=== PATIENT | female | born 1930 | race Hispanic/Latino ===

== ENCOUNTER 2019-02-12 06:37 | Observation (INO) | payer MEDICARE, OTHER ==
[2019-02-12 07:39] LABS: BASO % 0.3 % (0.0-2.0); EOS # 0.1 K/uL (0.0-0.7); EOS % 0.7 % (0.0-4.0); HEMOGLOBIN 10.2 g/dL (11.0-16.0); LYMPH # 1.8 K/uL (1.0-4.3); LYMPH % 14.5 % (20.0-40.0); MEAN CELL VOLUME 86.6 fL (81.0-99.0); MEAN CORPUSCULAR HEMOGLOBIN 28.9 pg (27.0-31.0); MEAN CORPUSCULAR HGB CONC 33.3 g/dL (33.0-37.0); MEAN PLATELET VOLUME 8.8 fL (7.2-11.7); MONO # 0.8 K/uL (0.0-0.8); MONO % 6.5 % (0.0-10.0); NEUT # 9.5 K/uL (1.8-7.0); RBC 3.53 Mil/uL (3.80-5.20)
[2019-02-12 07:42] LABS: WHITE BLOOD COUNT 12.1 K/uL (4.8-10.8)
[2019-02-12 07:49] LABS: PROTHROMBIN TIME 11.2 SECONDS (9.7-12.2)
[2019-02-12 08:11] LABS: CK-MB 1.04 ng/mL (0.0-3.38); TROPONIN I 0.013 ng/mL (0.00-0.120)
--- NOTE | 2019-02-12 08:28 | C.PDOC ---
History Of Present Illness 88 y/o female w/PMhx of Alzheimer's dementia brought to ER by EMS from [facility] for evaluation of vomiting. As per EMS and NH records, patient had 2 episodes of coffee ground emesis today. HPI is limited due to joi estuardomayte's clinical condition. Time Seen by Provider: 02/12/19 07:03 Chief Complaint (Nursing): GI Problem History Per: EMS, Other (NH records) History/Exam Limitations: no limitations Onset/Duration Of Symptoms: Days Current Symptoms Are (Timing): Still Present Severity: Moderate Past Medical History Reviewed: Historical Data, Nursing Documentation, Vital Signs Vital Signs: Last Vital Signs Temp 98.4 F 02/12/19 06:46 Pulse 70 02/12/19 06:46 Resp 22 02/12/19 06:46 BP 145/72 02/12/19 06:46 Pulse Ox 98 02/12/19 06:46 Primary Care Provider: Swati Herrera - Medical History PMH: Alzheimer's Disease, Dementia, HTN Surgical History: No Surg Hx Family History: States: No Known Family Hx - Social History Hx Alcohol Use: No Hx Substance Use: No - Immunization History Hx Tetanus Toxoid Vaccination: No Hx Influenza Vaccination: No Hx Pneumococcal Vaccination: Yes Review Of Systems Review Of Systems: ROS cannot be obtained secondary to pt's inabilty to answer questions. Physical Exam - Physical Exam Appears: No Acute Distress, Chronically Ill, Other (awake, alert) Skin: Normal Color, Warm, Dry Head: Normacephalic Eye(s): bilateral: Normal Inspection Oral Mucosa: Moist Neck: Supple Cardiovascular: Rhythm Regular Respiratory: Normal Breath Sounds, No Rales, No Rhonchi, No Wheezing Gastrointestinal/Abdominal: Normal Exam, Bowel Sounds, Soft, No Tenderness, No Guarding, No Rebound Rectal: Rectal Tone (normal rectal tone), Hemorrhoids (external non-bleeding hemorrhoids, non-thrombosed, no gross blood), No Tenderness, Other (brown stool) Neurological/Psych: Other (awake, alert, confused, able to follow commands) ED Course And Treatment - Laboratory Results Result Diagrams: 02/13/19 11:24 02/13/19 11:24 Lab Results: PT 11.2 SECONDS (9.7-12.2) 02/12/19 07:29 INR 1.0 02/12/19 07:29 APTT 23.0 SECONDS (21-34) 02/12/19 07:29 Troponin I 0.0130 ng/mL (0.00-0.120) 02/12/19 07:29 ECG: Interpreted By Me, Viewed By Me (NSR 67 BPM, normal axis, no acute ST/T wave changes) ECG Interpretation: No Acute Changes O2 Sat by Pulse Oximetry: 98 (RA) Pulse Ox Interpretation: Normal - Other Rad CXR X-Ray: Viewed By Me, Read By Radiologist Interpretation: HISTORY: cough. COMPARISON: Chest x-ray performed 10/26/16. TECHNIQUE: Chest, one view. FINDINGS: LUNGS: Probable scarring/atelectasis at the right lung apex. Small lung nodule re-identified at the left mid lung, likely calcified granuloma. Please note that chest x-ray has limited sensitiv ity for the detection of pulmonary masses. PLEURA: No significant pleural effusion identified. No definite pneumothorax . CARDIOVASCULAR: Prominence of the mediastinum may be exaggerated by aortic ectasia and patient obliquity. Heart size appears borderline enlarged. Atherosclerotic calcifications of the aorta. OSSEOUS STRUCTURES: Osseous demineralization. Degenerative changes of the spine and shoulders. Scoliosis. Acromioclavicular arthropathy. VISUALIZED UPPER ABDOMEN: Unremarkable. OTHER FINDINGS: None. IMPRESSION: Prominence of the mediastinum may be exaggerated by aortic ectasia and patient obliquity. Heart size appears borderline enlarged. Atherosclerotic calcifications of the aorta. Small lung nodule re-identified at the left mid lung, likely calcified granuloma. Probable scarring/atelectasis at the right lung apex. Progress Note: Blood work, UA, SFOB, CXR ordered and reviewed. Patient given IV NS bolus, IV protonix. - Physician Consult Information Physician Contacted: Swati Herrera Outcome Of Conversation: Discussed patient with PMD, would like obs for coffee ground emesis, elevated Bun/Cr, anemia. Patient's son Russell at bedside and in agreement. Disposition - Disposition Disposition: HOSPITALIZED Disposition Time: 11:04 Condition: STABLE - Clinical Impression Clinical Impression: Coffee ground emesis, Elevated serum creatinine, Elevated BUN, Anemia - Scribe Statement The provider has reviewed the documentation as recorded by the Scribe All medical record entries made by the Scribe were at my direction and personally dictated by me. I have reviewed the chart and agree that the record accurately reflects my personal performance of the history, physical exam, medical decision making, and the department course for this patient. I have also personally directed, reviewed, and agree with the discharge instructions and disposition. Provider Attestation: All medical record entries made by the Scribe were at my direction and personally dictated by me. I have reviewed the chart and agree that the record accurately reflects my personal performance of the history, physical exam, medical decision making, and the department course for this patient. I have also personally directed, reviewed, and agree with the discharge instructions and disposition. Decision To Admit - Pt Status Changed To: Hospital Disposition Of: Observation - . Bed Request Type: Regular Admitting Physician: Swati Herrera Patient Diagnosis: Coffee ground emesis, Elevated serum creatinine, Elevated BUN, Anemia
[2019-02-12 08:41] LABS: ALB/GLOB RATIO 1.5 (1.0-2.1); ALBUMIN 3.6 g/dL (3.5-5.0); CALCIUM 9.4 mg/dl (8.6-10.4)
[2019-02-12] MEDS ORDERED: Sodium Chloride 0.9% 500 ML IV ONE ×2 (08:47→09:23)
--- NOTE | 2019-02-12 10:26 | RAD ---
HISTORY: cough COMPARISON: Chest x-ray performed 10/26/16 TECHNIQUE: Chest, one view. FINDINGS: LUNGS: Probable scarring/atelectasis at the right lung apex. Small lung nodule re-identified at the left mid lung, likely calcified granuloma. Please note that chest x-ray has limited sensitivity for the detection of pulmonary masses. PLEURA: No significant pleural effusion identified. No definite pneumothorax . CARDIOVASCULAR: Prominence of the mediastinum may be exaggerated by aortic ectasia and patient obliquity. Heart size appears borderline enlarged. Atherosclerotic calcifications of the aorta. OSSEOUS STRUCTURES: Osseous demineralization. Degenerative changes of the spine and shoulders. Scoliosis. Acromioclavicular arthropathy. VISUALIZED UPPER ABDOMEN: Unremarkable. OTHER FINDINGS: None. IMPRESSION: Prominence of the mediastinum may be exaggerated by aortic ectasia and patient obliquity. Heart size appears borderline enlarged. Atherosclerotic calcifications of the aorta. Small lung nodule re-identified at the left mid lung, likely calcified granuloma. Probable scarring/atelectasis at the right lung apex.
[2019-02-12 10:40] LABS: URINE BILIRUBIN NEGATIVE (NEGATIVE); URINE BLOOD NEGATIVE (NEGATIVE); URINE CLARITY Clear (Clear); URINE COLOR Yellow (YELLOW); URINE GLUCOSE (UA) NORMAL (Normal); URINE LEUKOCYTE ESTERASE NEG Leu/uL (Negative); URINE PROTEIN NEGATIVE (NEGATIVE)
--- NOTE | 2019-02-12 12:25 | CP.PCM.HP ---
History of Present Illness - History of Present Illness History of Present Illness: 88 y/o female,w/PMhx of Alzheimer's and dementia, brought to ER by EMS from [facility] for evaluation of vomiting. As per EMS and [place] records, patient had 2 episodes of coffee ground emesis BUN ELEVATED H/H STABLE STOOL GUAIC NEG Present on Admission - Present on Admission Any Indicators Present on Admission: No Review of Systems - Review of Systems All systems: reviewed and no additional remarkable complaints except (DEMENTIA) Past Patient History - Infectious Disease Hx of Infectious Diseases: None - Past Medical History & Family History Past Medical History?: Yes - Past Social History Smoking Status: Never Smoked - CARDIAC Hx Hypertension: Yes - PULMONARY Hx Respiratory Disorders: No - NEUROLOGICAL Hx Alzheimer's Disease: Yes Hx Dementia: Yes - HEENT Hx HEENT Problems: No - RENAL Hx Chronic Kidney Disease: No - ENDOCRINE/METABOLIC Hx Endocrine Disorders: No - HEMATOLOGICAL/ONCOLOGICAL Hx Blood Disorders: No Hx Blood Transfusions: No - INTEGUMENTARY Hx Dermatological Problems: No - MUSCULOSKELETAL/RHEUMATOLOGICAL Hx Falls: No - GASTROINTESTINAL Hx Gastrointestinal Disorders: No - GENITOURINARY/GYNECOLOGICAL Hx Genitourinary Disorders: No - PSYCHIATRIC Hx Substance Use: No - SURGICAL HISTORY Hx Surgeries: No - ANESTHESIA Hx Anesthesia: No Hx Anesthesia Reactions: No Hx Malignant Hyperthermia: No Meds Allergies/Adverse Reactions: Allergies Allergy/AdvReac Type Severity Reaction Status Date / Time red sauce Allergy Intermediate RASH Uncoded 02/12/19 07:00 Physical Exam - Constitutional Appears: Well - Head Exam Head Exam: ATRAUMATIC, NORMAL INSPECTION, NORMOCEPHALIC - Eye Exam Eye Exam: EOMI, Normal appearance, PERRL - ENT Exam ENT Exam: Mucous Membranes Moist, Normal Exam - Neck Exam Neck exam: Positive for: Normal Inspection - Respiratory Exam Respiratory Exam: Clear to Auscultation Bilateral, NORMAL BREATHING PATTERN - Cardiovascular Exam Cardiovascular Exam: REGULAR RHYTHM - GI/Abdominal Exam GI & Abdominal Exam: Normal Bowel Sounds, Soft. absent: Tenderness - Extremities Exam Extremities exam: Positive for: normal inspection - Neurological Exam Neurological exam: Altered, CN II-XII Intact - Psychiatric Exam Psychiatric exam: Flat Affect Results - Vital Signs Recent Vital Signs: Last Vital Signs Temp 98.4 F 02/12/19 06:46 Pulse 62 02/12/19 10:36 Resp 19 02/12/19 10:36 BP 148/61 05/01/19 10:36 Pulse Ox 98 02/12/19 11:52 - Labs Result Diagrams: 02/12/19 07:29 02/12/19 07:29 Labs: Laboratory Results - last 24 hr 02/12/19 02/12/19 02/12/19 07:29 07:29 07:29 WBC 12.1 H D RBC 3.53 L Hgb 10.2 L Hct 30.5 L MCV 86.6 MCH 28.9 MCHC 33.3 RDW 15.0 H Plt Count 246 MPV 8.8 Neut % (Auto) 78.0 H Lymph % (Auto) 14.5 L [place] % (Auto) 6.5 Eos % (Auto) 0.7 Baso % (Auto) 0.3 Neut # (Auto) 9.5 H Lymph # (Auto) 1.8 [place] # (Auto) 0.8 Eos # (Auto) 0.1 Baso # (Auto) 0.0 PT 11.2 INR 1.0 APTT 23.0 Sodium 142 Potassium 4.2 Chloride 111 H Carbon Dioxide 20 L Anion Gap 15 BUN 46 H Creatinine 1.6 H Est GFR ( Amer) 37 Est GFR (Non-Af Amer) 30 Random Glucose 96 Calcium 9.4 Total Bilirubin 0.6 AST 22 ALT 14 Alkaline Phosphatase 51 Total Creatine Kinase 96 CK-MB (Mass) 1.04 Troponin I 0.0130 Total Protein 6.1 L Albumin 3.6 Globulin 2.5 Albumin/Globulin Ratio 1.5 Lipase 167 Urine Color Urine Clarity Urine pH Ur Specific [place] Urine Protein Urine Glucose (UA) Urine Ketones Urine Blood Urine Nitrate Urine Bilirubin Urine Urobilinogen Ur Leukocyte Esterase Urine WBC (Auto) Urine RBC (Auto) Hyaline Casts Stool Occult Blood Blood Type Antibody Screen 02/12/19 02/12/19 02/12/19 07:29 07:38 10:29 WBC RBC Hgb Hct MCV MCH MCHC RDW Plt Count MPV Neut % (Auto) Lymph % (Auto) [place] % (Auto) Eos % (Auto) Baso % (Auto) Neut # (Auto) Lymph # (Auto) [place] # (Auto) Eos # (Auto) Baso # (Auto) PT INR APTT Sodium Potassium Chloride Carbon Dioxide Anion Gap BUN Creatinine Est GFR ( Amer) Est GFR (Non-Af Amer) Random Glucose Calcium Total Bilirubin AST ALT Alkaline Phosphatase Total Creatine Kinase CK-MB (Mass) Troponin I Total Protein Albumin Globulin Albumin/Globulin Ratio Lipase Urine Color Yellow Urine Clarity Clear Urine pH 5.0 Ur Specific [place] 1.011 Urine Protein Negative Urine Glucose (UA) Normal Urine Ketones Negative Urine Blood Negative Urine Nitrate Negative Urine Bilirubin Negative Urine Urobilinogen 2.0 H Ur Leukocyte Esterase Neg Urine WBC (Auto) < 1 Urine RBC (Auto) 1 Hyaline Casts 3-5 H Stool Occult Blood Negative Blood Type O POSITIVE Antibody Screen Negative Assessment & Plan (1) GI bleed Status: Acute Comment: GI EVAL (2) Acute gastritis Status: Acute
[2019-02-12 13:44] VITALS: RESP 20
--- NOTE | 2019-02-12 15:17 | CP.PCM.CON ---
<Amn Pascuala - Last Filed: 02/12/19 15:24> History of Present Illness - History of Present Illness History of Present Illness: GI Fellow PGY5 Consult This is a 88yF with pmhx of Alzheimer dementia brought to ER from [facility] for evaluation of vomiting. As per EMS and [place] records, patient had 2 episodes of coffee ground emesis. No more episodes in ER. Pt is unable to give further information due to dementia. On record review not on OAC or anti platelets. Unknown hx of EGD or Colonoscopy. Pt's Hgb 10.1 from 11.1 two years ago. Pt hemodynamically stable. ROS: A 12pt ROS was unable to be obtained due to dementia Pmhx: As stated above PsHx: unable to be obtained FHx: unable to be obtained SH: unable to be obtained Past Patient History - Infectious Disease Hx of Infectious Diseases: None - Past Medical History & Family History Past Medical History?: Yes - Past Social History Smoking Status: Never Smoked - CARDIAC Hx Hypertension: Yes - PULMONARY Hx Respiratory Disorders: No - NEUROLOGICAL Hx Alzheimer's Disease: Yes Hx Dementia: Yes - HEENT Hx HEENT Problems: No - RENAL Hx Chronic Kidney Disease: No - ENDOCRINE/METABOLIC Hx Endocrine Disorders: No - HEMATOLOGICAL/ONCOLOGICAL Hx Blood Disorders: No Hx Blood Transfusions: No - INTEGUMENTARY Hx Dermatological Problems: No - MUSCULOSKELETAL/RHEUMATOLOGICAL Hx Falls: No - GASTROINTESTINAL Hx Gastrointestinal Disorders: No - GENITOURINARY/GYNECOLOGICAL Hx Genitourinary Disorders: No - PSYCHIATRIC Hx Substance Use: No - SURGICAL HISTORY Hx Surgeries: No - ANESTHESIA Hx Anesthesia: No Hx Anesthesia Reactions: No Hx Malignant Hyperthermia: No Meds Allergies/Adverse Reactions: Allergies Allergy/AdvReac Type Severity Reaction Status Date / Time red sauce Allergy Intermediate RASH Uncoded 02/12/19 07:00 - Medications Medications: Current Medications Pantoprazole Sodium (Protonix Inj) 40 mg IVP Q12H ANNABELLA Last Admin: 02/12/19 13:55 Dose: 40 mg Physical Exam - Constitutional Appears: Non-toxic, No Acute Distress, Confused, Cachectic - Head Exam Head Exam: ATRAUMATIC, NORMAL INSPECTION, NORMOCEPHALIC - Eye Exam Eye Exam: EOMI, Normal appearance, PERRL - ENT Exam ENT Exam: Mucous Membranes Dry - Neck Exam Neck exam: Positive for: Normal Inspection - Respiratory Exam Respiratory Exam: Clear to Auscultation Bilateral, NORMAL BREATHING PATTERN - Cardiovascular Exam Cardiovascular Exam: REGULAR RHYTHM, RRR, +S1, +S2 - GI/Abdominal Exam GI & Abdominal Exam: Normal Bowel Sounds, Soft. absent: Distended, Firm, Guarding, Organomegaly, Tenderness - Rectal Exam Rectal Exam: Deferred - Extremities Exam Extremities exam: Positive for: full ROM, normal inspection - Neurological Exam Neurological exam: Alert - Psychiatric Exam Psychiatric exam: Agitated - Skin Skin Exam: Dry, Intact, Normal Color, Warm Results - Vital Signs Recent Vital Signs: Last Vital Signs Temp 98.0 F 02/12/19 13:34 Pulse 109 H 02/12/19 13:34 Resp 20 02/12/19 13:34 BP 143/51 L 02/12/19 13:34 Pulse Ox 98 02/12/19 13:34 - Labs Result Diagrams: 02/12/19 07:29 02/12/19 07:29 Labs: Laboratory Results - last 24 hr 02/12/19 02/12/19 02/12/19 07:29 07:29 07:29 WBC 12.1 H D RBC 3.53 L Hgb 10.2 L Hct 30.5 L MCV 86.6 MCH 28.9 MCHC 33.3 RDW 15.0 H Plt Count 246 MPV 8.8 Neut % (Auto) 78.0 H Lymph % (Auto) 14.5 L [place] % (Auto) 6.5 Eos % (Auto) 0.7 Baso % (Auto) 0.3 Neut # (Auto) 9.5 H Lymph # (Auto) 1.8 [place] # (Auto) 0.8 Eos # (Auto) 0.1 Baso # (Auto) 0.0 PT 11.2 INR 1.0 APTT 23.0 Sodium 142 Potassium 4.2 Chloride 111 H Carbon Dioxide 20 L Anion Gap 15 BUN 46 H Creatinine 1.6 H Est GFR ( Amer) 37 Est GFR (Non-Af Amer) 30 Random Glucose 96 Calcium 9.4 Total Bilirubin 0.6 AST 22 ALT 14 Alkaline Phosphatase 51 Total Creatine Kinase 96 CK-MB (Mass) 1.04 Troponin I 0.0130 Total Protein 6.1 L Albumin 3.6 Globulin 2.5 Albumin/Globulin Ratio 1.5 Lipase 167 Urine Color Urine Clarity Urine pH Ur Specific [place] Urine Protein Urine Glucose (UA) Urine Ketones Urine Blood Urine Nitrate Urine Bilirubin Urine Urobilinogen Ur Leukocyte Esterase Urine WBC (Auto) Urine RBC (Auto) Hyaline Casts Stool Occult Blood Blood Type Antibody Screen 02/12/19 02/12/19 02/12/19 07:29 07:38 10:29 WBC RBC Hgb Hct MCV MCH MCHC RDW Plt Count MPV Neut % (Auto) Lymph % (Auto) [place] % (Auto) Eos % (Auto) Baso % (Auto) Neut # (Auto) Lymph # (Auto) [place] # (Auto) Eos # (Auto) Baso # (Auto) PT INR APTT Sodium Potassium Chloride Carbon Dioxide Anion Gap BUN Creatinine Est GFR ( Amer) Est GFR (Non-Af Amer) Random Glucose Calcium Total Bilirubin AST ALT Alkaline Phosphatase Total Creatine Kinase CK-MB (Mass) Troponin I Total Protein Albumin Globulin Albumin/Globulin Ratio Lipase Urine Color Yellow Urine Clarity Clear Urine pH 5.0 Ur Specific [place] 1.011 Urine Protein Negative Urine Glucose (UA) Normal Urine Ketones Negative Urine Blood Negative Urine Nitrate Negative Urine Bilirubin Negative Urine Urobilinogen 2.0 H Ur Leukocyte Esterase Neg Urine WBC (Auto) < 1 Urine RBC (Auto) 1 Hyaline Casts 3-5 H Stool Occult Blood Negative Blood Type O POSITIVE Antibody Screen Negative Assessment & Plan - Assessment and Plan (Free Text) Assessment: 1. Coffee ground emesis 2. Anemia Plan: -Pt with no active GI bleeding at this time, hemodynamically stable -Pt refused rectal exam, per ER brown stool -Hold any OAC -Monitor H/H and transfuse if Hgb<7 -PPI BID -Clear liquid today -NPO past midnight -No plan for EGD at this time, if has active bleeding please contact GI team <Boone Holly Y - Last Filed: 02/12/19 18:26> Meds - Medications Medications: Current Medications Acetaminophen (Tylenol 325mg Tab) 650 mg PO Q6 PRN PRN Reason: Pain, moderate (4-7) Ondansetron HCl (Zofran Inj) 4 mg IVP Q12 PRN PRN Reason: Nausea/Vomiting Pantoprazole Sodium (Protonix Inj) 40 mg IVP Q12H ANNABELLA Last Admin: 02/12/19 13:55 Dose: 40 mg Results - Vital Signs Recent Vital Signs: Last Vital Signs Temp 97.7 F 02/12/19 16:00 Pulse 71 02/12/19 16:00 Resp 20 02/12/19 16:00 BP 136/83 02/12/19 16:00 Pulse Ox 100 02/12/19 16:00 - Labs Result Diagrams: 02/12/19 07:29 02/12/19 07:29 Labs: Laboratory Results - last 24 hr 02/12/19 02/12/19 02/12/19 07:29 07:29 07:29 WBC 12.1 H D RBC 3.53 L Hgb 10.2 L Hct 30.5 L MCV 86.6 MCH 28.9 MCHC 33.3 RDW 15.0 H Plt Count 246 MPV 8.8 Neut % (Auto) 78.0 H Lymph % (Auto) 14.5 L [place] % (Auto) 6.5 Eos % (Auto) 0.7 Baso % (Auto) 0.3 Neut # (Auto) 9.5 H Lymph # (Auto) 1.8 [place] # (Auto) 0.8 Eos # (Auto) 0.1 Baso # (Auto) 0.0 PT 11.2 INR 1.0 APTT 23.0 Sodium 142 Potassium 4.2 Chloride 111 H Carbon Dioxide 20 L Anion Gap 15 BUN 46 H Creatinine 1.6 H Est GFR ( Amer) 37 Est GFR (Non-Af Amer) 30 Random Glucose 96 Calcium 9.4 Total Bilirubin 0.6 AST 22 ALT 14 Alkaline Phosphatase 51 Total Creatine Kinase 96 CK-MB (Mass) 1.04 Troponin I 0.0130 Total Protein 6.1 L Albumin 3.6 Globulin 2.5 Albumin/Globulin Ratio 1.5 Lipase 167 Urine Color Urine Clarity Urine pH Ur Specific [place] Urine Protein Urine Glucose (UA) Urine Ketones Urine Blood Urine Nitrate Urine Bilirubin Urine Urobilinogen Ur Leukocyte Esterase Urine WBC (Auto) Urine RBC (Auto) Hyaline Casts Stool Occult Blood Blood Type Antibody Screen 02/12/19 02/12/19 02/12/19 07:29 07:38 10:29 WBC RBC Hgb Hct MCV MCH MCHC RDW Plt Count MPV Neut % (Auto) Lymph % (Auto) [place] % (Auto) Eos % (Auto) Baso % (Auto) Neut # (Auto) Lymph # (Auto) [place] # (Auto) Eos # (Auto) Baso # (Auto) PT INR APTT Sodium Potassium Chloride Carbon Dioxide Anion Gap BUN Creatinine Est GFR ( Amer) Est GFR (Non-Af Amer) Random Glucose Calcium Total Bilirubin AST ALT Alkaline Phosphatase Total Creatine Kinase CK-MB (Mass) Troponin I Total Protein Albumin Globulin Albumin/Globulin Ratio Lipase Urine Color Yellow Urine Clarity Clear Urine pH 5.0 Ur Specific [place] 1.011 Urine Protein Negative Urine Glucose (UA) Normal Urine Ketones Negative Urine Blood Negative Urine Nitrate Negative Urine Bilirubin Negative Urine Urobilinogen 2.0 H Ur Leukocyte Esterase Neg Urine WBC (Auto) < 1 Urine RBC (Auto) 1 Hyaline Casts 3-5 H Stool Occult Blood Negative Blood Type O POSITIVE Antibody Screen Negative Attending/Attestation - Attestation I have personally seen and examined this patient.: Yes I have fully participated in the care of the patient.: Yes I have reviewed all pertinent clinical information: Yes Notes (Text): 02/12/19 18:22 I have seen and examined patient with GI fellow. Agree with above documentation with the following additions. In brief, this is an 88 year old female with history of Alzheimer's dementia who is sent from nursing facility for evaluation of vomiting. Patient is not able to participate in conversation due to underlying dementia, additional information obtained via chart review, discussion with patient family member and nursing staff. Apparently at nursing facility, patient had two episodes of coffee ground emesis, though no reported abdominal pain, fever/chills, weight loss, rectal bleeding, or change in bowel habits. There has not been any additional vomiting since arrival to hospital. Unclear regarding prior endoscopic evaluation. Review of vitals from today shows tachycardia. Alzheimer's dementia Vomiting Anemia - Clear liquid diet as tolerated - Continue with PPI therapy - Anti-emetic therapy PRN - H/H stable, continue to monitor - Patient currently hemodynamically stable, suggest ongoing observation and supportive care. Given advanced patient age, will attempt to manage conservatively without endoscopic evaluation, though will monitor patient clinical course.
--- NOTE | 2019-02-13 10:22 | CP.PCM.PN ---
<Farheen Garner - Last Filed: 02/13/19 10:19> Subjective - Date & Time of Evaluation Date of Evaluation: 02/13/19 Time of Evaluation: 07:00 - Subjective Subjective: GI Fellow PGY5 Progress Note Pt seen and evaluated at bedside, pt confused and asking for coffee. Per nursing no issues overnight, no hematemesis or melena. ROS: A 12pt ROS was negative except as above. Objective - Vital Signs/Intake and Output Vital Signs (last 24 hours): Temp Pulse Resp BP Pulse Ox 97.2 F L 98 H 20 134/82 96 02/13/19 08:00 02/13/19 08:00 02/13/19 08:00 02/13/19 08:00 02/13/19 08:00 Intake and Output: 02/13/19 02/13/19 06:59 18:59 Intake Total 350 Balance 350 - Medications Medications: Current Medications Acetaminophen (Tylenol 325mg Tab) 650 mg PO Q6 PRN PRN Reason: Pain, moderate (4-7) Ondansetron HCl (Zofran Inj) 4 mg IVP Q12 PRN PRN Reason: Nausea/Vomiting Pantoprazole Sodium (Protonix Inj) 40 mg IVP Q12H ANNABELLA Last Admin: 02/13/19 01:24 Dose: 40 mg - Labs Labs: 02/12/19 07:29 02/12/19 07:29 PT 11.2 SECONDS (9.7-12.2) 02/12/19 07:29 INR 1.0 02/12/19 07:29 APTT 23.0 SECONDS (21-34) 02/12/19 07:29 - Constitutional Appears: Non-toxic, No Acute Distress, Confused - Head Exam Head Exam: ATRAUMATIC, NORMAL INSPECTION, NORMOCEPHALIC - Eye Exam Eye Exam: EOMI, Normal appearance, PERRL - ENT Exam ENT Exam: Mucous Membranes Dry - Neck Exam Neck Exam: Full ROM, Normal Inspection - Respiratory Exam Respiratory Exam: Clear to Ausculation Bilateral, NORMAL BREATHING PATTERN - Cardiovascular Exam Cardiovascular Exam: REGULAR RHYTHM, RRR, +S1, +S2 - GI/Abdominal Exam GI & Abdominal Exam: Soft, Normal Bowel Sounds. absent: Tenderness - Rectal Exam Rectal Exam: Deferred - Extremities Exam Extremities Exam: Full ROM, Normal Inspection - Neurological Exam Neurological Exam: Alert, Awake - Psychiatric Exam Psychiatric exam: Agitated - Skin Skin Exam: Dry, Intact, Normal Color, Warm Assessment and Plan - Assessment and Plan (Free Text) Assessment: 1. Coffee ground emesis 2. Anemia Plan: -Pt with no active GI bleeding at this time, hemodynamically stable -Hgb stable, labs pending this am -Monitor H/H and transfuse if Hgb<7 -PPI po daily -Full liquid today, advance as tolerated -No plan for EGD at this time, if has active bleeding please contact GI team <Boone Holly - Last Filed: 02/13/19 11:47> Objective - Vital Signs/Intake and Output Vital Signs (last 24 hours): Temp Pulse Resp BP Pulse Ox 97.2 F L 98 H 20 134/82 96 02/13/19 08:00 02/13/19 08:00 02/13/19 08:00 02/13/19 08:00 02/13/19 08:00 Intake and Output: 02/13/19 02/13/19 06:59 18:59 Intake Total 350 Balance 350 - Medications Medications: Current Medications Acetaminophen (Tylenol 325mg Tab) 650 mg PO Q6 PRN PRN Reason: Pain, moderate (4-7) Ondansetron HCl (Zofran Inj) 4 mg IVP Q12 PRN PRN Reason: Nausea/Vomiting Pantoprazole Sodium (Protonix Inj) 40 mg IVP Q12H ANNABELLA Last Admin: 02/13/19 01:24 Dose: 40 mg - Labs Labs: 02/13/19 11:24 02/12/19 07:29 PT 11.2 SECONDS (9.7-12.2) 02/12/19 07:29 INR 1.0 02/12/19 07:29 APTT 23.0 SECONDS (21-34) 02/12/19 07:29 Attending/Attestation - Attestation I have personally seen and examined this patient.: Yes I have fully participated in the care of the patient.: Yes I have reviewed all pertinent clinical information, including history, physical exam and plan: Yes Notes (Text): 02/13/19 11:44 I have seen and examined patient with GI fellow. No acute events overnight, as per nursing staff no reports of abdominal pain or recurrent vomiting. She is hungry and asking for coffee and her diet to be advanced. Review of vitals from today shows tachycardia. Dementia Acute renal insufficiency Anemia Vomiting - resolved - Advance diet slowly as tolerated - H/H stable, continue to monitor - Continue with PPI therapy - Anti-emetic therapy PRN - Patient without recurrent emesis and hemodynamically stable. Given advanced patient age and absence of ongoing symptoms, will favor conservative management and observation. No further planned GI intervention at this time, will sign off case. Please reconsult as necessary, thank you.
--- NOTE | 2019-02-13 11:11 | CARD ---
APPROVED REPORT Date of service: 02/12/2019 EKG Measurement Heart [id number] <Conclusion> nsr,baseline artifacts. Anterior infarct, age undetermined Abnormal ECG
[2019-02-13 11:34] LABS: BASO % 0.5 % (0.0-2.0); EOS # 0.2 K/uL (0.0-0.7); EOS % 2.1 % (0.0-4.0); HEMOGLOBIN 9.7 g/dL (11.0-16.0); LYMPH # 2.1 K/uL (1.0-4.3); LYMPH % 23.2 % (20.0-40.0); MEAN CELL VOLUME 86.3 fL (81.0-99.0); MEAN CORPUSCULAR HEMOGLOBIN 29.3 pg (27.0-31.0); MEAN CORPUSCULAR HGB CONC 33.9 g/dL (33.0-37.0); MEAN PLATELET VOLUME 8.7 fL (7.2-11.7); MONO # 0.6 K/uL (0.0-0.8); MONO % 6.2 % (0.0-10.0); NEUT # 6.1 K/uL (1.8-7.0); RBC 3.3 Mil/uL (3.80-5.20); RED CELL DISTRIBUTION WIDTH 14.6 % (11.5-14.5)
[2019-02-13 11:53] LABS: CALCIUM 9.3 mg/dl (8.6-10.4)
--- NOTE | 2019-02-13 12:42 | CP.PCM.PN ---
Subjective - Date & Time of Evaluation Date of Evaluation: 02/13/19 Time of Evaluation: 12:40 - Subjective Subjective: PT ALERT AWAKE AND CONFUSED ROS N/A P/E REMAINS SAME H/H STABLE NO EGD PER GI SERVICE Objective - Vital Signs/Intake and Output Vital Signs (last 24 hours): Temp Pulse Resp BP Pulse Ox 97.2 F L 98 H 20 134/82 96 02/13/19 08:00 02/13/19 08:00 02/13/19 08:00 02/13/19 08:00 02/13/19 08:00 Intake and Output: 02/13/19 02/13/19 11:59 23:59 Intake Total 0 Balance 0 - Medications Medications: Current Medications Acetaminophen (Tylenol 325mg Tab) 650 mg PO Q6 PRN PRN Reason: Pain, moderate (4-7) Ondansetron HCl (Zofran Inj) 4 mg IVP Q12 PRN PRN Reason: Nausea/Vomiting Pantoprazole Sodium (Protonix Inj) 40 mg IVP Q12H ANNABELLA Last Admin: 02/13/19 01:24 Dose: 40 mg - Labs Labs: 02/13/19 11:24 02/13/19 11:24 PT 11.2 SECONDS (9.7-12.2) 02/12/19 07:29 INR 1.0 02/12/19 07:29 APTT 23.0 SECONDS (21-34) 02/12/19 07:29 Assessment and Plan (1) GI bleed Status: Acute (2) Acute gastritis Status: Acute
--- NOTE | 2019-02-14 11:10 | CP.PCM.DIS ---
Provider - Provider Date of Admission: 02/12/19 11:04 Attending physician: Swati Herrera MD Time Spent in preparation of Discharge (in minutes): 35 Diagnosis - Discharge Diagnosis (1) GI bleed Status: Acute (2) Acute gastritis Status: Acute Hospital Course - Lab Results Lab Results: Most Recent Lab Values WBC 9.0 K/uL (4.8-10.8) 02/13/19 11:24 RBC 3.30 Mil/uL (3.80-5.20) L 02/13/19 11:24 Hgb 9.7 g/dL (11.0-16.0) L 02/13/19 11:24 Hct 28.5 % (34.0-47.0) L 02/13/19 11:24 MCV 86.3 fL (81.0-99.0) 02/13/19 11:24 MCH 29.3 pg (27.0-31.0) 02/13/19 11:24 MCHC 33.9 g/dL (33.0-37.0) 02/13/19 11:24 RDW 14.6 % (11.5-14.5) H 02/13/19 11:24 Plt Count 217 K/uL (130-400) 02/13/19 11:24 MPV 8.7 fL (7.2-11.7) 02/13/19 11:24 Neut % (Auto) 68.0 % (50.0-75.0) 02/13/19 11:24 Lymph % (Auto) 23.2 % (20.0-40.0) 02/13/19 11:24 [place] % (Auto) 6.2 % (0.0-10.0) 02/13/19 11:24 Eos % (Auto) 2.1 % (0.0-4.0) 02/13/19 11:24 Baso % (Auto) 0.5 % (0.0-2.0) 02/13/19 11:24 Neut # (Auto) 6.1 K/uL (1.8-7.0) 02/13/19 11:24 Lymph # (Auto) 2.1 K/uL (1.0-4.3) 02/13/19 11:24 [place] # (Auto) 0.6 K/uL (0.0-0.8) 02/13/19 11:24 Eos # (Auto) 0.2 K/uL (0.0-0.7) 02/13/19 11:24 Baso # (Auto) 0.0 K/uL (0.0-0.2) 02/13/19 11:24 PT 11.2 SECONDS (9.7-12.2) 02/12/19 07:29 INR 1.0 02/12/19 07:29 APTT 23.0 SECONDS (21-34) 02/12/19 07:29 Sodium 143 mmol/L (132-148) 02/13/19 11:24 Potassium 3.6 mmol/L (3.6-5.2) 02/13/19 11:24 Chloride 112 mmol/L (98-107) H 02/13/19 11:24 Carbon Dioxide 20 mmol/L (22-30) L 02/13/19 11:24 Anion Gap 15 (10-20) 02/13/19 11:24 BUN 34 mg/dL (7-17) H 02/13/19 11:24 Creatinine 1.3 mg/dL (0.7-1.2) H 02/13/19 11:24 Est GFR ( Amer) 47 02/13/19 11:24 Est GFR (Non-Af Amer) 39 02/13/19 11:24 Random Glucose 78 mg/dL (65-105) 02/13/19 11:24 Calcium 9.3 mg/dl (8.6-10.4) 02/13/19 11:24 Total Bilirubin 0.6 mg/dL (0.2-1.3) 02/12/19 07:29 AST 22 U/L (14-36) 02/12/19 07:29 ALT 14 U/L (9-52) 02/12/19 07:29 Alkaline Phosphatase 51 U/L (38-126) 02/12/19 07:29 Total Creatine Kinase 96 U/L (30-135) 02/12/19 07:29 CK-MB (Mass) 1.04 ng/mL (0.0-3.38) 02/12/19 07:29 Troponin I 0.0130 ng/mL (0.00-0.120) 02/12/19 07:29 Total Protein 6.1 g/dL (6.3-8.3) L 02/12/19 07: Albumin 3.6 g/dL (3.5-5.0) 02/12/19 07: Globulin 2.5 gm/dL (2.2-3.9) 02/12/19 07: Albumin/Globulin Ratio 1.5 (1.0-2.1) 02/12/19 07:29 Lipase 167 U/L (23-300) 02/12/19 07:29 Urine Color Yellow (YELLOW) 02/12/19 10:29 Urine Clarity Clear (Clear) 02/12/19 10:29 Urine pH 5.0 (5.0-8.0) 02/12/19 10:29 Ur Specific [place] 1.011 (1.003-1.030) 02/12/19 10:29 Urine Protein Negative mg/dL (NEGATIVE) 02/12/19 10:29 Urine Glucose (UA) Normal mg/dL (Normal) 02/12/19 10:29 Urine Ketones Negative mg/dL (NEGATIVE) 02/12/19 10:29 Urine Blood Negative (NEGATIVE) 02/12/19 10:29 Urine Nitrate Negative (NEGATIVE) 02/12/19 10:29 Urine Bilirubin Negative (NEGATIVE) 02/12/19 10:29 Urine Urobilinogen 2.0 mg/dL (0.2-1.0) H 02/12/19 10:29 Ur Leukocyte Esterase Neg [place]/uL (Negative) 02/12/19 10:29 Urine WBC (Auto) < 1 /hpf (0-5) 02/12/19 10:29 Urine RBC (Auto) 1 /hpf (0-3) 02/12/19 10:29 Hyaline Casts 3-5 /lpf (0-2) H 02/12/19 10:29 Stool Occult Blood Negative (NEGATIVE) 02/12/19 07:38 Blood Type O POSITIVE 02/12/19 07:29 Antibody Screen Negative 02/12/19 07:29 - Hospital Course Hospital Course: 88 y/o female,w/PMhx of Alzheimer's and dementia, brought to ER by EMS from [facility] for evaluation of vomiting. As per EMS and [facility] records, patient had 2 episodes of coffee ground emesis BUN ELEVATED H/H STABLE STOOL GUAIC NEG GI SER. WAS CONSULTED AND PT WAS TREATED CONSERVATIVELY. NO EGD PT STABLE , NO FURTHER GI BLEED TRANSFER TO [place] Discharge Exam - Head Exam Head Exam: ATRAUMATIC, NORMAL INSPECTION, NORMOCEPHALIC Discharge Plan - Follow Up Plan Condition: GOOD Disposition: HOME/ ROUTINE
--- NOTE | 2019-02-14 13:51 | CP.PCM.PN ---
Subjective - Date & Time of Evaluation Date of Evaluation: 02/14/19 Time of Evaluation: 13:51 - Subjective Subjective: PATIENT SEEN AND EXAMINED AT THE BEDSIDE Objective - Vital Signs/Intake and Output Vital Signs (last 24 hours): Temp Pulse Resp BP Pulse Ox 97.7 F 65 20 151/74 H 96 02/14/19 07:00 02/14/19 07:00 02/14/19 07:00 02/14/19 07:00 02/14/19 07:00 Intake and Output: 02/14/19 02/14/19 06:59 18:59 Intake Total 540 Balance 540 - Medications Medications: Current Medications Acetaminophen (Tylenol 325mg Tab) 650 mg PO Q6 PRN PRN Reason: Pain, moderate (4-7) Ondansetron HCl (Zofran Inj) 4 mg IVP Q12 PRN PRN Reason: Nausea/Vomiting Pantoprazole Sodium (Protonix Inj) 40 mg IVP Q12H ANNABELLA Last Admin: 02/14/19 12:17 Dose: 40 mg - Labs Labs: 02/13/19 11:24 02/13/19 11:24 PT 11.2 SECONDS (9.7-12.2) 02/12/19 07:29 INR 1.0 02/12/19 07:29 APTT 23.0 SECONDS (21-34) 02/12/19 07:29 Assessment and Plan - Assessment and Plan (Free Text) Assessment: PLACE UNDER THE SERVICE OF DR NICHOLAS AT [facility] CONTINUE HOME MEDICATION ACTIVITY TOLERATED AND FACILITY PROTOCOL CALL DR NICHOLAS FOR FURTHER ORDER
[2019-02-14 16:40] VITALS: BP 136/74; PULSE 76; TEMP 97.8
[2019-02-15 16:48] VITALS: O2SAT 98
== END 2019-02-14 16:49 ==
LOC: C.ER 06:37 → C.9E 11:04 → C.3T 13:27
PROVIDERS: ADMIT Internal Medicine Cardiovascular Disease; ATTEND Internal Medicine Cardiovascular Disease
DX: K92.0 Hematemesis (principal); I10 Essential (primary) hypertension; G30.9 Alzheimer's disease, unspecified; F02.80 Dementia in other diseases classified elsewhere, unspecified severity, without behavioral disturbance, psychotic disturbance, mood disturbance, and anxiety; D64.9 Anemia, unspecified; N17.9 Acute kidney failure, unspecified; K29.00 Acute gastritis without bleeding
CPT/HCPCS: 36415; 71045; 80048; 80053; 81001; 82550; 82553; 83690; 84484; 85025; 85610; 85730; 86850; 86900; 93005; 96374; 96375; 96376; 97110; 97116; 97162; 97530; 99285; C9113; G0328; G0378; G8978; G8979; J2060; J7040